=== PATIENT | male | born 1975 | race Caucasian/White ===

== ENCOUNTER 2023-06-30 16:34 | Inpatient (IN) | payer OTHER, BC ==
[2023-06-30] MEDS ORDERED: Ipratropium/Albuterol 3 ML NEB NEB PRN (18:02)
[2023-06-30] MEDS ORDERED: Morphine 2 MG/ML VIAL SLOW IVP PRN (18:02)
[2023-06-30] MEDS ORDERED: Ondansetron PF 4 MG/2 ML Vial IVP PRN (18:02)
[2023-06-30] MEDS ORDERED: traMADol HCl 50 MG TAB PO PRN (18:05)
[2023-06-30] MEDS ORDERED: Cyclobenzaprine 10 MG TAB PO PRN (18:05)
[2023-06-30] MEDS ORDERED: Ketorolac Tromethamine 30 MG/ML VIAL IVP SCH (18:15)
[2023-06-30] MEDS: Sodium Chloride 0.9% 1,000 ML IV SCH ×2 (18:32→20:12)
[2023-06-30 18:44] LABS: #Monocytes 0.7 thou/uL (0.11-0.59); %Basophils 0.1 % (0.0-1.0); %Lymphocytes 7.2 % (21.0-51.0); %Monocytes 6.5 % (0.0-10.0); %Neutrophils 85.8 % (42.0-75.0); Hematocrit 41.5 % (42.0-52.0); Hemoglobin 13.6 g/dL (14.0-18.0); Mean Corpuscular HGB CONC 32.8 g/dL (32.0-36.0); Mean Corpuscular Hemoglobin 28.3 pg (27.0-31.0); Mean Corpuscular Volume 86.5 fl (78.0-98.0); Mean Platelet Volume 9.8 fL (7.4-10.4); Platelet Count 217 10x3/uL (130-400); RBC Distribution Width 12.9 % (11.5-14.5); White Blood Cell (WBC) Count 10.5 10x3/uL (4.8-10.8)
[2023-06-30 19:08] LABS: Anion Gap 13 mmol/L (10-20); BUN (Urea Nitrogen) 16 mg/dL (8.9-20.6); Calc. Creatinine Clearance 0 mL/min (70-130); Calcium 8.8 mg/dL (7.8-10.44); Carbon Dioxide 24 mmol/L (22-29); Chloride 105 mmol/L (98-107); Estimated GFR 96; Glucose 125 mg/dL (70-105); Magnesium 1.9 mg/dL (1.6-2.6); Phosphorus 3.5 mg/dL (2.3-4.7); Potassium 4.7 mmol/L (3.5-5.1); Sodium 137 mmol/L (136-145)
[2023-06-30] MEDS: Senokot S 8.6-50 MG TAB PO SCH (20:10)
[2023-06-30] MEDS: Famotidine/PF 20 mg/2ml Vial SLOW IVP SCH (20:10)
[2023-06-30] MEDS: Gabapentin 300 MG CAP PO SCH (20:11)
[2023-06-30 22:04] VITALS: BMI 25.5
[2023-06-30] MEDS: Ketorolac Tromethamine 30 MG/ML VIAL IVP SCH (23:34)
[2023-06-30] MEDS: Acetaminophen 500 MG TAB PO SCH (23:35)
[2023-06-30] MEDS: traMADol HCl 50 MG TAB PO SCH (23:35)
[2023-07-01] MEDS: Sodium Chloride 0.9% 1,000 ML IV SCH (04:40)
[2023-07-01] MEDS: Acetaminophen 500 MG TAB PO SCH (05:41)
[2023-07-01] MEDS: Ketorolac Tromethamine 30 MG/ML VIAL IVP SCH (05:41)
[2023-07-01] MEDS: traMADol HCl 50 MG TAB PO SCH (05:42)
[2023-07-01 07:09] LABS: #Eosinphils 0.2 thou/uL (0.0-0.7); #Monocytes 0.7 thou/uL (0.11-0.59); #Neutrophils 5.5 thou/uL (1.40-6.50); %Basophils 0.1 % (0.0-1.0); %Lymphocytes 14.5 % (21.0-51.0); %Monocytes 9.5 % (0.0-10.0); %Neutrophils 73.6 % (42.0-75.0); Hematocrit 40.1 % (42.0-52.0); Hemoglobin 12.7 g/dL (14.0-18.0); Mean Corpuscular HGB CONC 31.7 g/dL (32.0-36.0); Mean Corpuscular Hemoglobin 28.5 pg (27.0-31.0); Mean Platelet Volume 9.7 fL (7.4-10.4); Platelet Count 192 10x3/uL (130-400); RBC Distribution Width 13.1 % (11.5-14.5); Red Blood Cell (RBC) Count 4.46 mill/uL (4.70-6.10); White Blood Cell (WBC) Count 7.4 10x3/uL (4.8-10.8)
[2023-07-01 07:24] LABS: Mean Corpuscular Volume 89.9 fl (78.0-98.0)
[2023-07-01 07:32] LABS: Anion Gap 13 mmol/L (10-20); BUN (Urea Nitrogen) 16 mg/dL (8.9-20.6); Calc. Creatinine Clearance 121 mL/min (70-130); Calcium 8.5 mg/dL (7.8-10.44); Carbon Dioxide 22 mmol/L (22-29); Chloride 105 mmol/L (98-107); Estimated GFR 100; Glucose 95 mg/dL (70-105); Magnesium 1.9 mg/dL (1.6-2.6); Potassium 4.7 mmol/L (3.5-5.1); Sodium 135 mmol/L (136-145)
[2023-07-01 07:36] LABS: Phosphorus 2.4 mg/dL (2.3-4.7)
[2023-07-01 07:52] LABS: PTT 29.2 sec (22.9-36.1); Prothrombin Time 13.5 sec (12.0-14.7)
[2023-07-01] MEDS: Famotidine/PF 20 mg/2ml Vial SLOW IVP SCH (08:03)
[2023-07-01] MEDS: Gabapentin 300 MG CAP PO SCH (08:04)
[2023-07-01] MEDS: Senokot S 8.6-50 MG TAB PO SCH (08:05)
[2023-07-01] MEDS ORDERED: Ibuprofen 200 MG TAB PO PRN (08:33)
[2023-07-01] MEDS ORDERED: Polyethylene Glycol 3350 17 GM Packet PO SCH (09:00)
[2023-07-01 09:19] VITALS: BP 112/73; TEMP 97.8
== END 2023-07-01 11:30 | disposition home or self-care (01) | DRG 184 ==
LOC: SJJU 17:24
PROVIDERS: ADMIT Surgery; ATTEND Surgery
DX: S27.331A Laceration of lung, unilateral, initial encounter (principal); S22.42XA Multiple fractures of ribs, left side, initial encounter for closed fracture; V80.010A Animal-rider injured by fall from or being thrown from horse in noncollision accident, initial encounter; Y92.89 Other specified places as the place of occurrence of the external cause
CPT/HCPCS: 36415; 71045; 80048; 83735; 84100; 85025; 85610; 85730; 86850; 86900; 86901; J1885; J7050; S0028